=== PATIENT | male | born 1965 | race Caucasian/White ===

== ENCOUNTER 2019-11-20 18:16 | Inpatient (IN) | payer BC ==
[~2019-11-20] VITALS: Ht 175.3 cm; Wt 111.3 kg
[2019-11-20] MEDS ORDERED: APRESOLINE 25MG25 MG PO (18:35)
[2019-11-20] MEDS ORDERED: MINOXIDIL 2.5 PO (18:36)
[2019-11-20] MEDS ORDERED: ZYLOPRIM 100MG100 MG PO (18:38)
[2019-11-20] MEDS ORDERED: SINGULAIR 110 MG/TAB PO (18:38)
[2019-11-20 19:03] LABS: BASO # 0.1 (0.0-0.2); BASO % 0.7 % (0.0-2.0); EOS # 0.2 (0.0-0.7); EOS % 3.2 % (0-4.0); GRAN # 4.8 (1.4-6.5); GRAN % 69.4 % (42.2-75.2); HEMATOCRIT 39.5 % (42.0-52.0); HEMOGLOBIN 13.8 g/dl (13.5-18.0); LYMPH # 1.1 (1.2-3.4); LYMPH % 15.6 % (20.0-51.0); MEAN CELL VOLUME 88 fl (80.0-100.0); MEAN CORPUSCULAR HEMOGLOBIN 31 pg (27.0-31.0); MEAN CORPUSCULAR HGB CONC 35 g/dl (33.0-37.0); MEAN PLATELET VOLUME 10.4 fl (7.4-10.4); MONO # 0.8 (0.1-0.6); PLATELET COUNT 196 K/mm3 (130-400); RED BLOOD COUNT 4.47 M/mm3 (4.20-5.60); REDCELL DISTRIBUTION WIDTH-CV 12.7 % (11.5-14.5)
[2019-11-20 19:12] LABS: ALBUMIN 4.4 gm/dL (3.5-5.0); BILIRUBIN,TOTAL 0.9 mg/dL (0.0-1.0); CALCIUM 9.1 mg/dL (8.4-10.2); CREATININE, serum 7.44 (0.66-1.25); POTASSIUM 3.3 mmol/L (3.4-5.0); TOTAL PROTEIN 7.1 gm/dL (6.4-8.2)
[2019-11-20 19:27] LABS: TROPONIN-I 0.198 ng/mL (0.000-0.035)
[2019-11-20 19:43] LABS: TSH w REFLEX 2.37 uIU/mL (0.465-4.680)
[2019-11-20] MEDS ORDERED: LASIX 40MG TABL40 MG PO (20:23)
[2019-11-20 20:26] LABS: MAGNESIUM 2.2 mg/dL (1.6-2.3); PHOSPHOROUS 4.8 mg/dL (2.5-4.5)
--- NOTE | 2019-11-20 21:52 | NUR ---
Received report from DAVION Arreaga. Informed her that I[facility] room 17 still needed to be cleaned by EVS and that she would be notified when ready.
--- NOTE | 2019-11-20 23:11 | NUR ---
Patient arrives to [facility] room 17 via ED stretcher. Patient able to ambulate to [facility] bed. Patient denies any pain, stating he feels more discomfort from racing heart. Initial HR was 102, other vitals within normal limits. No skin issues noted. Patient arrives with suitcase containing personal electronics and chargers as well as street clothes and wallet; denies use of safe. Jud notified of patient's arrival and renal diet order confirmed. Will continue to monitor.
[2019-11-21] VITALS (686 sets, daily range): BP systolic 133–146; BP diastolic 71–85; PULSE 80–109; TEMP 98–98.7; O2SAT 93–99
[2019-11-21 00:33] LABS: COLLECTION METHOD CLEAN CATCH
[2019-11-21 01:00] LABS: MUCOUS Present /lpf; PH 5 (5-8); SQUAMOUS EPITHELIAL 0-2 /hpf; URINE APPEARANCE Clear; URINE BACTERIA None Seen /hpf; URINE BILIRUBIN Negative (NEGATIVE); URINE BLOOD 1+ (NEGATIVE); URINE COLOR Yellow; URINE GLUCOSE 1+ (NEGATIVE); URINE KETONE Negative (NEGATIVE); URINE LEUKOCYTE ESTERASE Negative (NEGATIVE); URINE NITRATE Negative (NEGATIVE); URINE PROTEIN(semi-quant) 2+ (NEGATIVE); URINE UROBILINOGEN Negative (NEGATIVE)
[2019-11-21 01:23] LABS: CALCIUM 8.5 mg/dL (8.4-10.2); CREATININE, serum 7.13 (0.66-1.25); POTASSIUM 3.4 mmol/L (3.4-5.0)
[2019-11-21 01:35] LABS: TROPONIN-I 0.277 ng/mL (0.000-0.035)
--- NOTE | 2019-11-21 01:56 | NUR ---
Notified Jud of critical troponins.
[2019-11-21 07:00] LABS: BASO % 0.6 % (0.0-2.0); EOS # 0.2 (0.0-0.7); EOS % 3.4 % (0-4.0); GRAN # 3.3 (1.4-6.5); GRAN % 65.9 % (42.2-75.2); HEMOGLOBIN 12.2 g/dl (13.5-18.0); LYMPH # 0.9 (1.2-3.4); LYMPH % 17.8 % (20.0-51.0); MEAN CELL VOLUME 89 fl (80.0-100.0); MEAN CORPUSCULAR HEMOGLOBIN 31 pg (27.0-31.0); MEAN CORPUSCULAR HGB CONC 34 g/dl (33.0-37.0); MEAN PLATELET VOLUME 9.9 fl (7.4-10.4); MONO # 0.6 (0.1-0.6); MONO % 11.9 % (1.7-9.3); PLATELET COUNT 164 K/mm3 (130-400); REDCELL DISTRIBUTION WIDTH-CV 12.8 % (11.5-14.5)
[2019-11-21 07:10] LABS: CALCIUM 8.8 mg/dL (8.4-10.2); CREATININE, serum 7.24 (0.66-1.25); POTASSIUM 3.7 mmol/L (3.4-5.0)
[2019-11-21 07:42] LABS: HEMATOCRIT 35.7 % (42.0-52.0)
--- NOTE | 2019-11-21 07:43 | NUR ---
Report given to DAVION Flores.
--- NOTE | 2019-11-21 12:35 | NUR ---
Per discontinue orders, removed IV catheter from right forarm.
== END 2019-11-21 13:15 | disposition home or self-care (01) | DRG 683 ==
LOC: COL.ER 18:16 → IMCU 20:14
PROVIDERS: Emergency Medicine; Nurse Practitioner Family; ADMIT Internal Medicine
DX: N17.9 Acute kidney failure, unspecified (principal); I12.0 Hypertensive chronic kidney disease with stage 5 chronic kidney disease or end stage renal disease; N18.9 Chronic kidney disease, unspecified; N18.5 Chronic kidney disease, stage 5; R00.0 Tachycardia, unspecified; M10.9 Gout, unspecified; J45.909 Unspecified asthma, uncomplicated; E87.6 Hypokalemia; E66.9 Obesity, unspecified; G47.30 Sleep apnea, unspecified; Z68.36 Body mass index [BMI] 36.0-36.9, adult; Z99.81 Dependence on supplemental oxygen; Z98.84 Bariatric surgery status; Z88.5 Allergy status to narcotic agent
CPT/HCPCS: 99222-AI; 99239; J1644; J3480; J7030